=== PATIENT | male | born 1995 | race Caucasian/White ===

== ENCOUNTER → 2019-04-23 | Outpatient (CLI) | payer OTHER ==
[~2019-04-23] MED LIST: FLOVENT
--- NOTE | 2019-04-23 16:29 | 2DMMODE ---
[place] [address] 2 D/M-MODE ECHOCARDIOGRAM Name: JAMAICA SIMONS Room: [facility]#: [id number] Admission: 04/23/19 Attend Phys: Tomasz Black, Discharge: Date of : 89 Date of Service: 04/23/19 1628 Report #: [id number] THIS REPORT FOR: cc: Tomasz Black John E. DO Holkins, John M. MD [facility] ~ APPROVED REPORT Study performed: 04/23/2019 13:43:58 EXAM: Comprehensive 2D, Doppler, and color-flow Echocardiogram Patient Location: Out-Patient BSA: 2.13 HR: 75 bpm BP: 120/72 mmHg Other Information Study Quality: Good Indications Mitral regurg. 2D Dimensions IVSd: 10.76 (7-11mm) LVOT Diam: 20.15 (18-24mm) LVDd: 42.93 mm PWd: 9.65 (7-11mm) Ascending Ao: 26.17 (22-36mm) LVDs: 27.92 (25-40mm) Aortic Root: 26.10 mm Volumes Left Atrial Volume (Systole) LA ESV Index: 10.60 mL/m2 Aortic Valve AoV Peak Luis Angel.: 1.13 m/s AO Peak Gr.: 5.11 mmHg LVOT Max P.25 mmHg AO Mean Gr.: 2.72 mmHg LVOT Mean P.50 mmHg LVOT Max V: 0.90 m/s AO V2 VTI: 19.28 cm LVOT Mean V: 0.56 m/s YESICA (VTI): 2.66 cm2 LVOT V1 VTI: 16.11 cm Mitral Valve E/A Ratio: 1.03 [place] [address] 2 D/M-MODE ECHOCARDIOGRAM Name: JAMAICA SIMONS Room: [facility]#: [id number] Admission: 04/23/19 Attend Phys: Tomasz Black, Discharge: Date of : 89 Date of Service: 04/23/19 1628 Report #: [id number] MV Decel. Time: 149.18 ms MV E Max Luis Angel.: 0.59 m/s MV PHT: 43.26 ms MVA (PHT): 5.09 cm2 TDI E/Lateral E': 4.21 E/Medial E': 5.36 Medial E' Luis Angel.: 0.11 m/s Lateral E' Luis Angel.: 0.14 m/s Pulmonary Valve PV Peak Luis Angel.: 0.93 m/s PV Peak Gr.: 3.47 mmHg Left Ventricle The left ventricle is normal size. There is normal LV segmental wall motion. There is normal left ventricular wall thickness. Left ventricular systolic function is normal. The left ventricular ejection fraction is within the normal range. LVEF is 60-65%. The left ventricular diastolic function is normal. Right Ventricle The right ventricle is normal size. The right ventricular systolic function is normal. Atria The left atrium size is normal. The right atrium size is normal. Aortic Valve The aortic valve is normal in structure. No aortic regurgitation is present. There is no aortic valvular stenosis. Mitral Valve The mitral valve is normal in structure. There is no mitral valve regurgitation noted. No evidence of mitral valve stenosis. Tricuspid Valve The tricuspid valve is normal in structure. There is no tricuspid valve regurgitation noted. Pulmonic Valve The pulmonary valve is normal in structure. Trace pulmonic regurgitation. Great Vessels The aortic root is normal in size. IVC is [place] [address] 2 D/M-MODE ECHOCARDIOGRAM Name: JAMAICA SIMONS Room: [facility]#: [id number] Admission: 04/23/19 Attend Phys: Tomasz Black, Discharge: Date of : 89 Date of Service: 04/23/19 1628 Report #: [id number] collapses >50% with inspiration. Pericardium There is no pericardial effusion. <Conclusion> The left ventricle is normal size. There is normal left ventricular wall thickness. Left ventricular systolic function is normal. The left ventricular ejection fraction is within the normal range. LVEF is 60-65%. The left ventricular diastolic function is normal. The right ventricle is normal size. The left atrium size is normal. The aortic valve is normal in structure. The mitral valve is normal in structure. The tricuspid valve is normal in structure. IVC is normal in size and collapses >50% with inspiration. There is no pericardial effusion. There is normal LV segmental wall motion. <ELECTRONICALLY SIGNED> By: Tomasz David MD, FACC 04/23/19 1628 1628 1628 Tomasz David MD, FACC /INF
== END ==
LOC: M.CRD 13:44
DX: I34.8 Other nonrheumatic mitral valve disorders (principal)